=== PATIENT | male | born 1950 ===

== ENCOUNTER 2016-11-07 09:53 | Day surgery (SDC) | payer MEDICARE, OTHER ==
[2016-10-25 12:41] VITALS: BMI 32.3
[2016-11-07 10:31] LABS: ADD MANUAL DIFF? NO
[2016-11-07 10:39] LABS: BASO # 0.02 K/mm3 (0.0-2.0); BASO % 0.2 % (0.0-3.0); EOS # 0.1 (0.0-0.7); EOS % 0.7 % (1.5-5.0); GRAN % 44.9 % (50.0-68.0); HEMATOCRIT 47.1 % (42.0-52.0); LYMPH # 3.6 (1.2-3.4); LYMPH % 44.2 % (22.0-35.0); MEAN CELL VOLUME 85.8 fl (80.0-105.0); MEAN CORPUSCULAR HEMOGLOBIN 29.5 pg (25.0-35.0); MEAN CORPUSCULAR HGB CONC 34.4 g/dl (31.0-37.0); MEAN PLATELET VOLUME 10.1 fl (7.0-11.0); MONO # 0.8 (0.1-0.6); PLATELET COUNT 249 10^3/uL (120.0-450.0); RED CELL DISTRIBUTION WIDTH 14.6 % (11.5-14.5); WHITE BLOOD COUNT 8.2 10^3/ul (4.5-11.0)
[2016-11-07 10:49] LABS: BLOOD UREA NITROGEN 12 mg/dL (7-21); CALCIUM 9.6 mg/dL (8.4-10.5); CARBON DIOXIDE 26 mmol/L (21-33); CHLORIDE 101 mmol/L (95-110); GFR AFRICAN-AMERICAN > 60; GLUCOSE,RANDOM 81 mg/dL (70-110); INR 0.97 (0.93-1.08); PARTIAL THROMBOPLASTIN TIME 27.9 Seconds (23.7-30.8); SODIUM 140 mmol/L (132-148)
[2016-11-07] MEDS ORDERED: Midazolam 2 MG/2 ML VIAL ONE (11:27)
[2016-11-07] MEDS ORDERED: Oxycodone/Acetaminophen 5/325 mg Tab PO PRN (12:17)
[2016-11-07] MEDS ORDERED: Sodium Chloride 0.45% 1,000 ML IV SCH (12:30)
[2016-11-07 13:17] VITALS: RESP 18; TEMP 98
[2016-11-07 13:54] VITALS: BP 159/80; PULSE 67; O2SAT 98
--- NOTE | 2016-11-07 14:46 | CT ---
PROCEDURE: CT guided right renal aspiration and biopsy. HISTORY: Complex right renal cyst. Evaluate for malignancy. PHYSICIAN(S): Kalia Bear MD. TECHNIQUE: The relative risks and indications of the procedure were explained to the patient and consent obtained. The patient was placed prone on the CT scanner and preliminary images through the kidneys obtained. Conscious sedation and monitoring were provided throughout the procedure by a nurse. There is a bilobed cyst in the mid to lower right kidney anteriorly. A right lateral approach was selected and the area prepped and draped in the usual sterile fashion. 1% Xylocaine was used to anesthetize the skin and soft tissues. A 17-gauge guiding needle was advanced into the margin of the superior aspect of the bilobed right renal cyst. Approximately 10 cc of orange fluid was aspirated.. Its position was confirmed with CT. Using coaxial technique, multiple core biopsies were obtained of the residual cyst wall. . The postprocedure images show no evidence of significant hemorrhage. IMPRESSION: 1. CT-guided aspiration and biopsy of a bilobed right renal cyst as described above.
== END 2016-11-07 14:30 | disposition home or self-care (01) ==
LOC: SDS 09:53
PROVIDERS: ATTEND Radiology Vascular & Interventional Radiology
DX: N28.1 Cyst of kidney, acquired (principal); I10 Essential (primary) hypertension; J45.909 Unspecified asthma, uncomplicated
CPT/HCPCS: 36415; 50200; 77012; 80048; 85025; 85610; 85730; 88173; 88305; J2250; J2405; J3010; J7030